=== PATIENT | female | born 1970 | race Hispanic/Latino ===

== ENCOUNTER 2017-11-03 17:28 | Observation (INO) | payer BC ==
[~2017-11-03] VITALS: Ht 165.1 cm; Wt 121.2 kg
[~2017-11-03 17:28] MED LIST: DIAZ5TAB4 PO; LEVO50TA11 PO; LISI10TA7 PO; METO50TA18 PO
[2017-11-03 18:31] LABS: EOSINOPHILS % (AUTO) 3.5 % (0.0-8.0); HEMATOCRIT 35.5 % (36-48); LYMPHOCYTES % (AUTO) 36.6 % (21.0-51.0); MEAN CORPUSCULAR HEMOGLOBIN 25.2 pg (27.0-33.0); MEAN CORPUSCULAR HGB CONC 33.4 g/dL (32.0-36.0); MEAN CORPUSCULAR VOLUME 75.6 fL (79-99); MONOCYTES % (AUTO) 7.5 % (3.0-13.0); NEUTROPHILS % (AUTO) 51.4 % (40.0-77.0); PLATELET COUNT (AUTO) 268 K/uL (130-400); RED CELL DISTRIBUTION WIDTH 15.1 % (11.0-15.5); WHITE BLOOD COUNT (AUTO) 7.1 K/uL (4.8-10.8)
[2017-11-03 18:41] LABS: CREATININE 1.3 mg/dL (0.5-1.5)
[2017-11-03 18:46] LABS: ALBUMIN 3.3 g/dL (3.5-5.0); BILIRUBIN,TOTAL 0.6 mg/dL (0.2-1.0); TOTAL PROTEIN, SERUM 7.3 g/dL (6.0-8.3)
[2017-11-03] MEDS ORDERED: ACETAMINOPHEN 325 MG TAB ONE (18:54)
[2017-11-03 21:07] LABS: BILIRUBIN,URINE Negative (NEGATIVE); COLOR,URINE Yellow (YELLOW); GLUCOSE, URINE (UA) Negative (NEGATIVE); KETONES,URINE Negative (NEGATIVE); LEUKOCYTE ESTERASE ,URINE Small (NEGATIVE); NITRATE,URINE Positive (NEGATIVE); OCCULT BLOOD,URINE Negative (NEGATIVE); PROTEIN,URINE POS 2+ (NEGATIVE); UROBILINOGEN,URINE 0.2 mg/dL (0.2-1.0)
[2017-11-03 21:10] LABS: APPEARANCE,URINE SLIGHTLY CLOUDY (CLEAR)
[2017-11-03 21:24] LABS: RBC,URINE 0-1 /HPF (0-1)
[2017-11-03 21:25] LABS: BACTERIA,URINE Moderate /HPF (None Seen); SQUAMOUS EPITHELIAL CELL,UR Few /HPF (0-2)
[2017-11-03] MEDS ORDERED: LORAZEPAM 2 MG/ML 1 ML VIAL ONE (23:13)
[2017-11-04] MEDS ORDERED: ASPIRIN 325 MG TABLET ONE (00:29)
[2017-11-04] MEDS ORDERED: CEPHALEXIN 500 MG CAPSULE ONE (00:59)
[2017-11-04 01:55] VITALS: BP 145/93
[2017-11-04] MEDS ORDERED: SODIUM CHLORIDE 0.9% 1000ML 1,000 ML IV ONE (02:21)
[2017-11-04] MEDS ORDERED: DEXTROSE 50%-WATER 50 ML DISP.SYRIN IV PRN (03:30)
[2017-11-04] MEDS ORDERED: GLUCAGON 1MG KIT 1 MG ML IM PRN (03:30)
[2017-11-04 04:00] VITALS: BP 126/77
[2017-11-04] MEDS: SODIUM CHLORIDE 0.9% 1000ML 1,000 ML IV SCH ×2 (05:00→15:00)
[2017-11-04] MEDS ORDERED: HYDRALAZINE HCL 20 MG/ML VIAL IV PRN (05:00)
[2017-11-04 06:21] LABS: HEMATOCRIT 36.1 % (36-48); MEAN CORPUSCULAR HEMOGLOBIN 24.7 pg (27.0-33.0); MEAN CORPUSCULAR HGB CONC 33.1 g/dL (32.0-36.0); MEAN CORPUSCULAR VOLUME 74.8 fL (79-99); PLATELET COUNT (AUTO) 274 K/uL (130-400); RED BLOOD CELL COUNT(AUTO) 4.82 MIL/uL (4.00-5.50); RED CELL DISTRIBUTION WIDTH 15.2 % (11.0-15.5); WHITE BLOOD COUNT (AUTO) 6.7 K/uL (4.8-10.8)
[2017-11-04] MEDS: INSULIN HUMULIN R 100 UNIT/ML 3ML SQ SCH ×4 (06:31→21:00)
[2017-11-04 06:35] LABS: HEMOGLOBIN A1C 6.7 % (4.0-6.0)
[2017-11-04 06:37] LABS: CREATININE 1.1 mg/dL (0.5-1.5)
[2017-11-04 08:00] VITALS: BP 126/88
[2017-11-04] MEDS: ASPIRIN 81MG TAB.CHEW PO SCH (08:50)
[2017-11-04] MEDS: FAMOTIDINE/PF 20 MG/2 ML VIAL IV SCH (08:51)
[2017-11-04 11:07] VITALS: BP 133/94
[2017-11-04 16:00] VITALS: BP 138/92
[2017-11-04 19:00] VITALS: BP 127/85
[2017-11-04] MEDS: METOPROLOL TARTRATE 50 MG TAB PO SCH (21:20)
[2017-11-04] MEDS: LISINOPRIL 10 MG TABLET PO SCH (21:20)
[2017-11-04] MEDS: ATORVASTATIN CALCIUM 20 MG TABLET PO SCH (21:20)
[2017-11-05] VITALS (7 sets, daily range): BP systolic 113–144; BP diastolic 73–87
[2017-11-05] MEDS: SODIUM CHLORIDE 0.9% 1000ML 1,000 ML IV SCH ×2 (01:00→11:00)
[2017-11-05] MEDS: INSULIN HUMULIN R 100 UNIT/ML 3ML SQ SCH ×4 (07:05→21:00)
[2017-11-05] MEDS: LEVOTHYROXINE 50 MCG TABLET PO SCH (07:09)
[2017-11-05] MEDS: ASPIRIN 81MG TAB.CHEW PO SCH (09:52)
[2017-11-05] MEDS: FAMOTIDINE/PF 20 MG/2 ML VIAL IV SCH (09:52)
[2017-11-05] MEDS: METOPROLOL TARTRATE 50 MG TAB PO SCH ×2 (09:52→20:10)
[2017-11-05] MEDS ORDERED: CEFTRIAXONE 1GM/D5W 50ML 50 ML IV SCH (14:45)
[2017-11-05] MEDS: CEFTRIAXONE SODIUM 1 GM IVP SCH (18:20)
[2017-11-05] MEDS: ATORVASTATIN CALCIUM 20 MG TABLET PO SCH (20:10)
[2017-11-05] MEDS: LISINOPRIL 10 MG TABLET PO SCH (20:11)
[2017-11-06] MEDS ORDERED: KETOROLAC TROMETHAMINE 15MG/ML IV PRN (02:45)
[2017-11-06] MEDS ORDERED: MORPHINE SULFATE 4 MG/1ML SYG IVP PRN (02:45)
[2017-11-06] MEDS: SODIUM CHLORIDE 0.9% 1000ML 1,000 ML IV SCH ×3 (02:47→21:26)
[2017-11-06] MEDS ORDERED: KETOROLAC TROMETHAMINE 15MG/ML ONE (03:09)
[2017-11-06 04:00] VITALS: BP 121/75
[2017-11-06 04:31] LABS: BASOPHILS % (AUTO) 0.6 % (0.0-5.0); EOSINOPHILS % (AUTO) 3.3 % (0.0-8.0); HEMATOCRIT 34.8 % (36-48); LYMPHOCYTES % (AUTO) 35.9 % (21.0-51.0); MEAN CORPUSCULAR HEMOGLOBIN 25.2 pg (27.0-33.0); MEAN CORPUSCULAR HGB CONC 33.6 g/dL (32.0-36.0); MEAN CORPUSCULAR VOLUME 75.1 fL (79-99); MONOCYTES % (AUTO) 8.6 % (3.0-13.0); NEUTROPHILS % (AUTO) 51.6 % (40.0-77.0); PLATELET COUNT (AUTO) 251 K/uL (130-400); RED BLOOD CELL COUNT(AUTO) 4.63 MIL/uL (4.00-5.50); RED CELL DISTRIBUTION WIDTH 15.1 % (11.0-15.5); WHITE BLOOD COUNT (AUTO) 7.5 K/uL (4.8-10.8)
[2017-11-06 04:39] LABS: CREATININE 1.1 mg/dL (0.5-1.5); POTASSIUM 3.7 mmol/L (3.5-5.1)
[2017-11-06] MEDS: INSULIN HUMULIN R 100 UNIT/ML 3ML SQ SCH ×4 (05:45→21:00)
[2017-11-06] MEDS: LEVOTHYROXINE 50 MCG TABLET PO SCH (06:37)
[2017-11-06 08:25] VITALS: BP 122/72
[2017-11-06] MEDS ORDERED: DIAZEPAM 5 MG TABLET PO SCH (10:16)
[2017-11-06] MEDS: FAMOTIDINE/PF 20 MG/2 ML VIAL IV SCH (10:29)
[2017-11-06] MEDS: METOPROLOL TARTRATE 50 MG TAB PO SCH ×2 (10:32→21:27)
[2017-11-06] MEDS: ASPIRIN 81MG TAB.CHEW PO SCH (10:33)
[2017-11-06 12:52] VITALS: BP 142/94
[2017-11-06 16:00] VITALS: BP 133/93
[2017-11-06] MEDS: CEFTRIAXONE SODIUM 1 GM IVP SCH (16:01)
[2017-11-06 18:15] VITALS: BP 133/91
[2017-11-06] MEDS: GABAPENTIN 100 MG CAPSULE PO SCH (21:26)
[2017-11-06] MEDS: LISINOPRIL 10 MG TABLET PO SCH (21:27)
[2017-11-06] MEDS: ATORVASTATIN CALCIUM 20 MG TABLET PO SCH (21:27)
[2017-11-06 22:50] VITALS: BP 136/95
[2017-11-07] MEDS: SODIUM CHLORIDE 0.9% 1000ML 1,000 ML IV SCH (03:00)
[2017-11-07 04:15] VITALS: BP 130/91
[2017-11-07] MEDS: INSULIN HUMULIN R 100 UNIT/ML 3ML SQ SCH ×4 (06:40→21:00)
[2017-11-07 07:00] VITALS: BP 122/89
[2017-11-07] MEDS: LEVOTHYROXINE 50 MCG TABLET PO SCH (07:27)
[2017-11-07] MEDS: ASPIRIN 81MG TAB.CHEW PO SCH (08:22)
[2017-11-07] MEDS: GABAPENTIN 100 MG CAPSULE PO SCH ×2 (08:22→23:09)
[2017-11-07] MEDS: METOPROLOL TARTRATE 50 MG TAB PO SCH ×2 (08:22→23:09)
[2017-11-07] MEDS: FAMOTIDINE/PF 20 MG/2 ML VIAL IV SCH (08:22)
[2017-11-07 11:10] VITALS: BP 119/77
[2017-11-07 15:00] VITALS: BP 126/85
[2017-11-07] MEDS: CEFTRIAXONE SODIUM 1 GM IVP SCH (16:32)
[2017-11-07 20:00] VITALS: BP 138/91
[2017-11-07] MEDS: LISINOPRIL 10 MG TABLET PO SCH (23:09)
[2017-11-07] MEDS: ATORVASTATIN CALCIUM 20 MG TABLET PO SCH (23:09)
[2017-11-07 23:30] VITALS: BP 136/95
[2017-11-08 04:03] VITALS: BP 136/86
[2017-11-08 04:44] LABS: BASOPHILS % (AUTO) 0.6 % (0.0-5.0); EOSINOPHILS % (AUTO) 3.4 % (0.0-8.0); HEMATOCRIT 36.3 % (36-48); LYMPHOCYTES % (AUTO) 35.3 % (21.0-51.0); MEAN CORPUSCULAR HGB CONC 33.6 g/dL (32.0-36.0); MEAN CORPUSCULAR VOLUME 74.4 fL (79-99); MONOCYTES % (AUTO) 6.3 % (3.0-13.0); NEUTROPHILS % (AUTO) 54.4 % (40.0-77.0); PLATELET COUNT (AUTO) 284 K/uL (130-400); RED BLOOD CELL COUNT(AUTO) 4.88 MIL/uL (4.00-5.50); RED CELL DISTRIBUTION WIDTH 15.6 % (11.0-15.5); WHITE BLOOD COUNT (AUTO) 8.1 K/uL (4.8-10.8)
[2017-11-08 05:02] LABS: CREATININE 1.1 mg/dL (0.5-1.5)
[2017-11-08] MEDS: INSULIN HUMULIN R 100 UNIT/ML 3ML SQ SCH (07:15)
[2017-11-08] MEDS: LEVOTHYROXINE 50 MCG TABLET PO SCH (07:24)
[2017-11-08 08:00] VITALS: BP 134/93
[2017-11-08] MEDS: ASPIRIN 81MG TAB.CHEW PO SCH (09:11)
[2017-11-08] MEDS: GABAPENTIN 100 MG CAPSULE PO SCH (09:11)
[2017-11-08] MEDS: FAMOTIDINE/PF 20 MG/2 ML VIAL IV SCH (09:11)
[2017-11-08] MEDS: METOPROLOL TARTRATE 50 MG TAB PO SCH (09:11)
[2017-11-08 12:00] VITALS: BP 114/74
[2017-11-08 16:00] VITALS: BP 125/81
== END 2017-11-08 21:40 | disposition home or self-care (01) ==
LOC: EDH 17:28 → INTOOBSV 11-04 00:37 → EDHIP 11-04 00:37 → OBSVTOIN 11-04 00:37 → 3DH 11-04 01:54
PROVIDERS: ADMIT Family Medicine; ATTEND Family Medicine
DX: R20.2 Paresthesia of skin (principal); E03.9 Hypothyroidism, unspecified; N39.0 Urinary tract infection, site not specified; E11.9 Type 2 diabetes mellitus without complications; E66.9 Obesity, unspecified; I10 Essential (primary) hypertension; E78.5 Hyperlipidemia, unspecified; Z79.899 Other long term (current) drug therapy; Z79.82 Long term (current) use of aspirin; Z83.3 Family history of diabetes mellitus; Z82.49 Family history of ischemic heart disease and other diseases of the circulatory system; Z90.49 Acquired absence of other specified parts of digestive tract
CPT/HCPCS: 36415 ×4; 70450; 70551; 72125; 72141; 80048 ×3; 80053; 80061; 81001; 81025; 82948 ×17; 83036; 85025 ×3; 85027; 87088; 87186; 93005; 93306; 93880; 96361 ×2; 96374; 96375; 96376 ×4; 99285; A4218 ×2; G0378 ×117; J0696 ×4; J1885; J2060; J3490 ×5; J7030 ×2

== ENCOUNTER 2019-09-14 22:28 | Emergency (ER) | payer BC, OTHER ==
[~2019-09-14 22:28] MED LIST changes: -DIAZ5TAB4 PO; +GLIP5TAB PO; +INSLAN SQ; +LEVO500T2 PO; +METF-444 PO
[2019-09-14 23:33] LABS: BASOPHILS % (AUTO) 0.4 % (0.0-5.0); EOSINOPHILS % (AUTO) 2.5 % (0.0-8.0); HEMATOCRIT 37.9 % (36-48); LYMPHOCYTES % (AUTO) 31.2 % (21.0-51.0); MEAN CORPUSCULAR HEMOGLOBIN 21.4 pg (27.0-33.0); MEAN CORPUSCULAR HGB CONC 30.3 g/dL (32.0-36.0); MEAN CORPUSCULAR VOLUME 70.6 fL (79-99); MONOCYTES % (AUTO) 8.7 % (3.0-13.0); NEUTROPHILS % (AUTO) 56.9 % (40.0-77.0); PLATELET COUNT (AUTO) 331 K/uL (130-400); RED BLOOD CELL COUNT(AUTO) 5.37 MIL/uL (4.00-5.50); RED CELL DISTRIBUTION WIDTH 17.3 % (11.0-15.5); WHITE BLOOD COUNT (AUTO) 7.2 K/uL (4.8-10.8)
[2019-09-14 23:42] LABS: CARBON DIOXIDE 28 mmol/L (21-32); CHLORIDE 104 mmol/L (101-111); GLOMERULAR FILTR. RATE CALC 63 mL/min (>60); GLUCOSE,RANDOM 106 mg/dL (70-105); POTASSIUM 4.3 mmol/L (3.5-5.1); SODIUM SERUM 139 mmol/L (136-145); UREA NITROGEN, BLOOD 16 mg/dL (7-18)
[2019-09-14 23:56] LABS: ALBUMIN 3.4 g/dL (3.5-5.0); ASPARTATE AMINOTRANSFERASE 15 U/L (10-37); BILIRUBIN,TOTAL 0.9 mg/dL (0.2-1.0); THYROID STIMULATING HORMONE 0.59 uIU/mL (0.36-3.74); TOTAL PROTEIN, SERUM 7.7 g/dL (6.0-8.3)
[2019-09-14 23:58] LABS: ALANINE AMINOTRANSFERASE < 6 U/L (12-78)
[2019-09-15] MEDS ORDERED: ONDANSETRON ODT 4 MG TAB ONE (00:18)
[2019-09-15 02:30] LABS: APPEARANCE,URINE Cloudy (CLEAR); BILIRUBIN,URINE Negative (NEGATIVE); COLOR,URINE Yellow (YELLOW); GLUCOSE, URINE (UA) Negative (NEGATIVE); KETONES,URINE Negative (NEGATIVE); LEUKOCYTE ESTERASE ,URINE Moderate (NEGATIVE); NITRATE,URINE Negative (NEGATIVE); OCCULT BLOOD,URINE Large (NEGATIVE); PROTEIN,URINE POS 1+ mg/dL (NEGATIVE)
[2019-09-15 02:40] LABS: BACTERIA,URINE Moderate /HPF (None Seen)
[2019-09-15 02:41] LABS: MUCUS,URINE Rare LPF (None Seen); SQUAMOUS EPITHELIAL CELL,UR Many /HPF (0-2)
[2019-09-15] MEDS ORDERED: LIDOCAINE HCL-MPF 1% 2ML VIAL ONE (03:11)
[2019-09-15] MEDS ORDERED: CEFTRIAXONE SODIUM 1 GM ONE (03:11)
[2019-09-15] MEDS ORDERED: ACETAMINOPHEN EXTRA STRENGTH 500 MG TABLET ONE (03:12)
== END 2019-09-15 03:19 | disposition home or self-care (01) ==
LOC: EDH 22:28
DX: N39.0 Urinary tract infection, site not specified (principal); I10 Essential (primary) hypertension; E11.9 Type 2 diabetes mellitus without complications; Z90.49 Acquired absence of other specified parts of digestive tract; Z98.890 Other specified postprocedural states
CPT/HCPCS: 36415; 80053; 81001; 83690; 84443; 85025; 87088; 87804 ×2; 96372; 99283; J0696; J3490

== ENCOUNTER 2021-12-04 03:36 | Emergency (ER) | payer BC, OTHER ==
[~2021-12-04] VITALS: Ht 165.1 cm; Wt 122.5 kg
[~2021-12-04 03:36] MED LIST changes: +LISI10TA24 PO; -LISI10TA7 PO
[2021-12-04] MEDS ORDERED: KETOROLAC 30MG VIAL (30MG/ML) IVP ONE (04:00)
[2021-12-04 04:25] LABS: BASOPHILS % (AUTO) 0.6 % (0.0-5.0); LYMPHOCYTES % (AUTO) 26.7 % (21.0-51.0); MEAN CORPUSCULAR HEMOGLOBIN 25.7 pg (27.0-33.0); MEAN CORPUSCULAR HGB CONC 32.1 g/dL (32.0-36.0); MEAN CORPUSCULAR VOLUME 79.8 fL (79-99); MONOCYTES % (AUTO) 8.1 % (3.0-13.0); NEUTROPHILS % (AUTO) 62.3 % (40.0-77.0); PLATELET COUNT (AUTO) 236 K/uL (130-400); RED BLOOD CELL COUNT(AUTO) 5.26 MIL/uL (4.00-5.50); WHITE BLOOD COUNT (AUTO) 7.9 K/uL (4.8-10.8)
[2021-12-04 04:34] LABS: POTASSIUM 4.2 mmol/L (3.5-5.1)
[2021-12-04 04:39] LABS: ALBUMIN 3.5 g/dL (3.5-5.0); BILIRUBIN,TOTAL 0.5 mg/dL (0.2-1.0)
[2021-12-04] MEDS ORDERED: ONDANSETRON 4MG INJ ONE (04:59)
[2021-12-04] MEDS ORDERED: MORPHINE 4 MG SYG ONE (04:59)
[2021-12-04] MEDS ORDERED: 0.9%NACL 1000ML 1,000 ML IV SCH (05:40)
[2021-12-04] MEDS ORDERED: MORPHINE 4 MG SYG IVP ONE (05:40)
[2021-12-04] MEDS ORDERED: ONDANSETRON 4MG INJ IVP ONE (05:40)
[2021-12-04 05:41] VITALS: BP 127/80
[2021-12-04] MEDS ORDERED: IOHEXOL-350 75 ML VIAL IV ONE (06:34)
[2021-12-04] MEDS ORDERED: MEDROXYPROGESTERONE ACET 5 MG TAB PO SCH (09:00)
== END 2021-12-04 09:39 | disposition home or self-care (01) ==
LOC: EDH 03:36
DX: N93.9 Abnormal uterine and vaginal bleeding, unspecified (principal); Q60.3 Renal hypoplasia, unilateral; E11.9 Type 2 diabetes mellitus without complications; E66.01 Morbid (severe) obesity due to excess calories; Z90.49 Acquired absence of other specified parts of digestive tract; Z68.41 Body mass index [BMI] 40.0-44.9, adult
CPT/HCPCS: 36415; 74177; 76856; 80053; 85025; 87486; 87797; 96361; 96374; 96375; 99285; J1885; J2270; J2405; J7030; Q9967

== ENCOUNTER 2021-12-06 10:24 | Emergency (ER) | payer BC ==
[~2021-12-06] VITALS: Ht 165.1 cm; Wt 122.5 kg
[2021-12-06 10:40] VITALS: BP 133/83
[2021-12-06 11:06] LABS: BASOPHILS % (AUTO) 0.6 % (0.0-5.0); EOSINOPHILS % (AUTO) 2.3 % (0.0-8.0); HEMATOCRIT 39.8 % (36-48); LYMPHOCYTES % (AUTO) 37.7 % (21.0-51.0); MEAN CORPUSCULAR HGB CONC 32.7 g/dL (32.0-36.0); MEAN CORPUSCULAR VOLUME 79.6 fL (79-99); NEUTROPHILS % (AUTO) 53.4 % (40.0-77.0); PLATELET COUNT (AUTO) 250 K/uL (130-400); RED CELL DISTRIBUTION WIDTH 14.1 % (11.0-15.5); WHITE BLOOD COUNT (AUTO) 6.2 K/uL (4.8-10.8)
[2021-12-06 11:25] LABS: CREATININE 0.9 mg/dL (0.5-1.5); POTASSIUM 4.1 mmol/L (3.5-5.1)
[2021-12-06 11:30] LABS: ALBUMIN 3.6 g/dL (3.5-5.0); BILIRUBIN,TOTAL 0.7 mg/dL (0.2-1.0); TOTAL PROTEIN, SERUM 7.3 g/dL (6.0-8.3)
== END 2021-12-06 11:57 | disposition home or self-care (01) ==
LOC: EDH 10:24
DX: N93.8 Other specified abnormal uterine and vaginal bleeding (principal); E11.9 Type 2 diabetes mellitus without complications; Z90.49 Acquired absence of other specified parts of digestive tract
CPT/HCPCS: 36415; 80053; 85025